=== PATIENT | female | born 1955 | race Native Hawaiian/Other Pacific Islander ===

== ENCOUNTER 2016-07-14 02:52 | Emergency (ER) | payer OTHER ==
[2016-07-14 03:10] VITALS: BP 142/80; PULSE 82; RESP 16; TEMP 98.7; O2SAT 97
--- NOTE | 2016-07-14 03:23 | C.PDOC ---
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 Patient denies any direct contact with needles or any other materials from the bin. Chief Complaint (Nursing): Abnormal Skin Integrity History Per: Patient History/Exam Limitations: no limitations Onset/Duration Of Symptoms: Mins Current Symptoms Are (Timing): Still Present Location Of Injury: Right: Elbow Recent travel outside of the [place]: No Past Medical History Reviewed: Historical Data, Nursing Documentation, Vital Signs Vital Signs: Last Vital Signs Temp 98.7 F 07/14/16 03:04 Pulse 82 07/14/16 03:04 Resp 16 07/14/16 03:04 BP 142/80 07/14/16 03:04 Pulse Ox 97 07/14/16 03:22 - Medical History PMH: HTN Surgical History: Cholecystectomy Family History: States: Unknown Family Hx - Social History Hx Alcohol Use: No Hx Substance Use: No - Immunization History Hx Tetanus Toxoid Vaccination: No Hx Influenza Vaccination: No Hx Pneumococcal Vaccination: No Review Of Systems Musculoskeletal: Positive for: Arm Pain (Right elbow) Physical Exam - Physical Exam Appears: Well, Non-toxic Skin: Normal Color, Warm, Dry Head: Atraumatic, Normacephalic Oral Mucosa: Moist Extremity: Other (Superficial linear abrasion of right elbow) Neurological/Psych: Oriented x3, Normal Speech, Normal Cognition ED Course And Treatment O2 Sat by Pulse Oximetry: 97 (Room air) Pulse Ox Interpretation: Normal Disposition Counseled Patient/Family Regarding: Diagnosis - Disposition Referrals: [facility] [Outside] Disposition: HOME/ ROUTINE Disposition Time: 03:21 Condition: STABLE Instructions: Acute Wound Care (ED) - POA Present On Arrival: None - Clinical Impression Clinical Impression: Abrasion - Scribe Statement The provider has reviewed the documentation as recorded by the Scribe Alphonso Gonzalez All medical record entries made by the Scribe were at my direction and personally dictated by me. I have reviewed the chart and agree that the record accurately reflects my personal performance of the history, physical exam, medical decision making, and the department course for this patient. I have also personally directed, reviewed, and agree with the discharge instructions and disposition.
== END 2016-07-14 03:31 | disposition home or self-care (01) ==
LOC: C.ER 02:52
DX: S50.311A Abrasion of right elbow, initial encounter (principal); W22.09XA Striking against other stationary object, initial encounter; Y93.F9 Activity, other caregiving; Y92.230 Patient room in hospital as the place of occurrence of the external cause; Y99.0 Civilian activity done for income or pay

== ENCOUNTER 2017-11-24 20:57 | Emergency (ER) | payer OTHER ==
[2017-11-24 21:07] VITALS: TEMP 98.2
--- NOTE | 2017-11-24 22:11 | C.PDOC ---
Addendum entered and electronically signed by Scarlett Everett PA 11/29/17 20:58: Disposition Clinical Impression: Ankle fracture Disposition: HOME/ ROUTINE Disposition Time: 22:40 Condition: STABLE Additional Instructions: Follow up with the Orthopedist within 1-2 days. Return if worsened. Prescriptions: Acetaminophen [Tylenol] 325 mg PO Q6 PRN #30 tab PRN Reason: Pain, Mild (1-3) Instructions: Ankle Fracture (DC) Referrals: Sharee Cesar DPM [Staff Provider] - Stand Alone Forms: Accompanied To ED By:, Work Excuse - POA Present On Arrival: None Original Note: History Of Present Illness 62 year old female presents to the ER with a complaint of left ankle pain for the past 4 days after she twisted it while walking at home. Patient has been walking on the ankle but states the pain worsens with walking. Denies weakness or numbness. Time Seen by Provider: 11/24/17 20:59 Chief Complaint (Nursing): Lower Extremity Problem/Injury History Per: Patient History/Exam Limitations: no limitations Onset/Duration Of Symptoms: Days Current Symptoms Are (Timing): Still Present Recent travel outside of the [place]: No - Ankle/Foot Description Of Injury: Twisted Past Medical History Reviewed: Historical Data, Nursing Documentation, Vital Signs Vital Signs: Last Vital Signs Temp 98.2 F 11/24/17 20:57 Pulse 96 H 11/24/17 20:57 Resp 16 11/24/17 20:57 BP 108/70 11/24/17 20:57 Pulse Ox 97 11/24/17 20:57 - Medical History PMH: HTN Surgical History: Cholecystectomy Family History: States: Unknown Family Hx - Social History Hx Alcohol Use: No Hx Substance Use: No - Immunization History Hx Tetanus Toxoid Vaccination: No Hx Influenza Vaccination: No Hx Pneumococcal Vaccination: No Review Of Systems Musculoskeletal: Positive for: Other (Left ankle pain) Neurological: Negative for: Weakness, Numbness Physical Exam - Physical Exam Appears: Non-toxic Skin: Normal Color, Warm, Dry Head: Atraumatic, Normacephalic Eye(s): bilateral: Normal Inspection Extremity: Capillary Refill (<2 seconds), Other (Mild diffuse swelling to left ankle with tenderness to the lateral malleolus) Pulses: Left Dorsalis Pedis: Normal, Right Dorsalis Pedis: Normal Neurological/Psych: Oriented x3, Normal Speech, Normal Motor, Normal Sensation Gait: Steady ED Course And Treatment O2 Sat by Pulse Oximetry: 97 (Room air) Pulse Ox Interpretation: Normal - Other Rad Left ankle x-ray X-Ray: Interpreted by Me, Viewed By Me Interpretation: Positive avulsion fracture of the distal fibula Medical Decision Making Medical Decision Making: Motrin administered. Left ankle x-ray ordered, results showed positive avulsion fracture of the distal fibula. Patient placed in posterior splint for support, she reports improvement of pain, will discharge home with instructions to follow up with ortho for further evaluation. Disposition - Disposition Referrals: Sharee Cesar DPM [Staff Provider] - Disposition: HOME/ ROUTINE Disposition Time: 22:40 Condition: STABLE Additional Instructions: Follow up with the Orthopedist within 1-2 days. Return if worsened. Prescriptions: Acetaminophen [Tylenol] 325 mg PO Q6 PRN #30 tab PRN Reason: Pain, Mild (1-3) Instructions: Ankle Fracture (DC) Forms: [employer] (C[place]), Work Excuse - Clinical Impression Clinical Impression: Ankle fracture - PA / [employer] / Resident Statement MD/DO has reviewed & agrees with the documentation as recorded. - Scribe Statement The provider has reviewed the documentation as recorded by the Scribsoheila Gonzalez All medical record entries made by the Dungibsoheila were at my direction and personally dictated by me. I have reviewed the chart and agree that the record accurately reflects my personal performance of the history, physical exam, medical decision making, and the department course for this patient. I have also personally directed, reviewed, and agree with the discharge instructions and disposition.
[2017-11-24 22:59] VITALS: BP 118/77; PULSE 91; RESP 18; O2SAT 96
--- NOTE | 2017-11-25 08:49 | RAD ---
Date of service: 11/24/2017 PROCEDURE: Left Ankle Radiographs. HISTORY: Wheelchair COMPARISON: None FINDINGS: BONES: Ossifications border the distal fibular epiphysis here osseous avulsion-needed be considered. Precise age unknown. Inferior calcaneal spur. Trace Roxane's tendon insetional enesthesophyte. Minimal dorsal talar and midfoot osseous hypertrophic change. JOINTS: Medial an lateral ankle joint arthrosis suggested. Osteoarthritis. Ankle mortise maintained. Talar dome intact SOFT TISSUES: Mild soft tissue swelling diffuse OTHER FINDINGS: Probable os tibial externum. IMPRESSION: Findings compatible with distal fibular osseous avulsions-precise chronicity unknown. Correlate clinically. Other findings as above.
== END 2017-11-24 23:03 | disposition home or self-care (01) ==
LOC: C.ER 20:57
DX: S82.892A Other fracture of left lower leg, initial encounter for closed fracture (principal); X50.9XXA Other and unspecified overexertion or strenuous movements or postures, initial encounter; Y93.01 Activity, walking, marching and hiking